=== PATIENT | male | born 1990 | race American Indian/Alaskan Native ===

== ENCOUNTER 2017-12-23 00:26 | Emergency (ER) | payer SELFPAY ==
[2017-12-23 00:51] VITALS: BP 104/62
[2017-12-23] MEDS ORDERED: MOTRIN PO ONE (02:01)
[2017-12-23] MEDS ORDERED: BOOSTRIX IM ONE (02:11)
--- NOTE | 2017-12-23 02:11 | Emergency Department Report ---
- General Chief Complaint: Wound/Laceration Stated Complaint: LAC TO HAND Time Seen by Provider: 12/23/17 01:49 Source: patient Mode of arrival: Ambulatory Limitations: No Limitations - History of Present Illness Initial Comments: 27-year-old -[place] male comes in reporting that he had cut his finger on a lawnmower. Patient does not recall when the last time he's had a tetanus shot. He denies any past medical history reports he takes no medications on a daily basis and has no known drug allergies. -: hour(s) (7) Extremity Location: Right: Hand (fifth digit) Place: outdoors Patient Tetanus UTD: No Context: sharp object use Associated Symptoms: none, pain Treatments Prior to Arrival: other (cleaned with peroxide) - Related Data Previous Rx's Medication Instructions Recorded Last Taken Type Cephalexin [Keflex] 250 mg PO BID #20 capsule 12/23/17 Unknown Rx Allergies Allergy/AdvReac Type Severity Reaction Status Date / Time No Known Allergies Allergy Verified 12/23/17 00:51 ED Review of Systems ROS: Stated complaint: LAC TO HAND Other details as noted in HPI Skin: other (cut to right fifth digit) ED Past Medical Hx - Past Medical History Previous Medical History?: No - Surgical History Past Surgical History?: No - Social History Smoking Status: Current Every Day Smoker Substance Use Type: Alcohol - Medications Home Medications: Home Medications Medication Instructions Recorded Confirmed Last Taken Type Cephalexin [Keflex] 250 mg PO BID #20 capsule 12/23/17 Unknown Rx ED Physical Exam - General Limitations: No Limitations General appearance: alert, in no apparent distress - Neurological Exam Neurological exam: Present: alert, oriented X3 - Psychiatric Psychiatric exam: Present: normal affect, normal mood - Skin Skin exam: Present: other (right fifth digit lateral 1 cm laceration vertical mostly with a flap that has gotten hardened. No blood supply to the flap and ends are fraid. ) ED Course Vital Signs 12/23/17 00:48 Temperature 97.5 F L Pulse Rate 89 Blood Pressure 104/62 O2 Sat by Pulse 98 Oximetry ED Medical Decision Making - Medical Decision Making Patient has been evaluated by this provider fast track. Discussed the patient we will soak it with warm water and Betadine. The skin flap appears to woke be able to suture. Discussed patient that I which from the skin in place and an a bandage. He will get a booster tetanus shot. Discussed the patient and need to keep the wound clean and dry. Discussed the patient I'll place him on antibiotics since he tends to work in the yard. Patient verbalized understanding Critical care attestation.: If time is entered above; I have spent that time in minutes in the direct care of this critically ill patient, excluding procedure time. ED Disposition Clinical Impression: Laceration of right little finger Qualifiers: Encounter type: initial encounter Damage to nail status: without damage Foreign body presence: without foreign body Qualified Code(s): S61.216A - Laceration without foreign body of right little finger without damage to nail, initial encounter Disposition: TO HOME OR SELFCARE Is pt being admited?: No Does the pt Need Aspirin: No Condition: Stable Instructions: Laceration (ED) Additional Instructions: Please take antibiotic as prescribed. Please keep the wound clean and dry. You can take Tylenol or Motrin for pain management. Prescriptions: Cephalexin [Keflex] 250 mg PO BID #20 capsule Referrals: PRIMARY CARE, [Primary Care Provider] - 3-5 Days [facility] [Provider Group] - 3-5 Days Forms: Work/School Release Form(ED)
== END 2017-12-23 02:40 | disposition home or self-care (01) ==
LOC: ED 00:26
DX: S61.216A Laceration without foreign body of right little finger without damage to nail, initial encounter (principal); F17.200 Nicotine dependence, unspecified, uncomplicated; W31.89XA Contact with other specified machinery, initial encounter; Y93.89 Activity, other specified; Y99.8 Other external cause status; Y92.89 Other specified places as the place of occurrence of the external cause
CPT/HCPCS: 90471; 90715; 96372; 99283